=== PATIENT | female | born 1980 | race American Indian/Alaskan Native ===

== ENCOUNTER 2018-03-05 21:46 | Emergency (ER) | payer MEDICAID ==
[2018-03-05 22:35] VITALS: BP 140/96
[2018-03-05] MEDS ORDERED: TORADOL IM ONE (23:45)
[2018-03-05] MEDS ORDERED: TORADOL ONE (23:47)
[2018-03-06 00:16] LABS: HCG Qualitative,Urine Negative (Negative)
[2018-03-06 00:32] LABS: Bilirubin,Urine NEG (Negative); Blood,Urine LG (Negative); Color,Urine Yellow (Yellow); Mucus,Urine 1+ /HPF
[2018-03-06 00:34] LABS: RBC,Urine > 182.0 /HPF (0.0-6.0)
--- NOTE | 2018-03-06 01:10 | Emergency Department Report ---
ED Female HPI - General Chief complaint: Urogenital-Female Stated complaint: BLOOD IN URINE/SOB Time Seen by Provider: 03/06/18 01:09 Source: patient Mode of arrival: Ambulatory Limitations: No Limitations - History of Present Illness Initial comments: 38-year-old -[place] female comes in complaining of blood in urine pain in her left flank and reports that she was seen at the urgent care on Saturday and to [facility] was supposed to call the antibiotic and patient reports that the pharmacist said that it would be on back order until Saturday. Patient reports that she is having crampy like left flank pain that radiates to her pelvic. She denies any fever but noticed blood in the urine she's having urinary urgency. MD Complaint: dysuria, pelvic pain -: days(s) (3) Location: suprapubic, LLQ Radiation: L flank Severity: severe Severity scale (0 -10): 7 Quality: cramping, sharp Consistency: intermittent Improves with: none Worsens with: movement Are you Now?: No Last Menstrual Period: 02/13/18 EDC: 11/20/18 Associated Symptoms: hematuria - Related Data Sexually active: Yes Previous Rx's Medication Instructions Recorded Last Taken Type Ketorolac [Toradol] 10 mg PO Q6H PRN #20 tablet 03/06/18 Unknown Rx Nitrofurantoin Monohyd/M-Cryst 100 mg PO BID #20 capsule 03/06/18 Unknown Rx [Macrobid 100 mg Capsule] Allergies Allergy/AdvReac Type Severity Reaction Status Date / Time No Known Allergies Allergy Verified 11/23/15 13:00 ED Review of Systems ROS: Stated complaint: BLOOD IN URINE/SOB Other details as noted in HPI Constitutional: denies: chills, fever Gastrointestinal: abdominal pain (pelvic pain) Musculoskeletal: back pain (left flank) ED Past Medical Hx - Past Medical History Previous Medical History?: Yes Hx Psychiatric Treatment: Yes (depression) - Surgical History Past Surgical History?: Yes Additional Surgical History: c section - Social History Smoking Status: Never Smoker Substance Use Type: Alcohol - Medications Home Medications: Home Medications Medication Instructions Recorded Confirmed Last Taken Type Ketorolac [Toradol] 10 mg PO Q6H PRN #20 tablet 03/06/18 Unknown Rx Nitrofurantoin Monohyd/M-Cryst 100 mg PO BID #20 capsule 03/06/18 Unknown Rx [Macrobid 100 mg Capsule] ED Physical Exam - General Limitations: No Limitations General appearance: alert, in no apparent distress - Head Head exam: Present: atraumatic, normocephalic - Eye Eye exam: Present: normal appearance - ENT ENT exam: Present: mucous membranes moist - Neck Neck exam: Present: normal inspection - Respiratory Respiratory exam: Present: normal lung sounds bilaterally. Absent: respiratory distress - Cardiovascular Cardiovascular Exam: Present: regular rate, normal rhythm. Absent: systolic murmur, diastolic murmur, rubs, gallop - GI/Abdominal GI/Abdominal exam: Present: soft, normal bowel sounds - Extremities Exam Extremities exam: Present: normal inspection - Back Exam Back exam: Present: normal inspection - Neurological Exam Neurological exam: Present: alert, oriented X3 - Psychiatric Psychiatric exam: Present: normal affect, normal mood - Skin Skin exam: Present: warm, dry, intact, normal color. Absent: rash ED Course Vital Signs 03/05/18 03/05/18 03/05/18 21:53 22:05 22:27 Temperature 98.4 F 98.2 F 98.4 F Pulse Rate 108 H 86 108 H Respiratory 20 18 18 Rate Blood Pressure 140/96 118/68 140/96 O2 Sat by Pulse 98 100 98 Oximetry ED Medical Decision Making - Radiology Data Radiology results: report reviewed, image reviewed FINAL REPORT EXAM: CT ABDOMEN PELVIS WO CON HISTORY: left flank pain with hematuria TECHNIQUE: Helical CT scan through the abdomen and pelvis without contrast. Images are reconstructed in the sagittal and coronal planes. PRIORS: None. FINDINGS: Solid organ and bowel evaluation is limited without intravenous contrast. Bowel evaluation is limited without oral contrast. The lung bases are clear. The liver, gallbladder, pancreas, spleen and adrenal glands appear normal. There is mild left hydronephrosis, pelviectasis and ureterectasis secondary to a 3 mm stone in the proximal left ureter approximately 2-3 cm distal to the UPJ. There is mild to moderate left perinephric stranding. There are 2 stones in the left kidney each measuring approximately 1 mm. There are two 3 mm stones in the right mid kidney. There is no hydronephrosis or ureterolithiasis on the right. The bladder appears grossly normal. The uterus and ovaries appear grossly normal. The stomach appears grossly within normal limits. There are no abnormally dilated loops of bowel or acute inflammatory changes. A normal-appearing appendix is identified. The cecum is mobile being located in the left lower quadrant. The abdominal aorta has a normal diameter. The bones and subcutaneous soft tissues are unremarkable for age. IMPRESSION: 1. Mild left hydronephrosis, pelviectasis and proximal ureterectasis secondary to a 3 mm stone in the proximal left ureter approximately 2-3 cm distal to the UPJ. 2. Uifg-ie-uiqokras left perinephric stranding 3. Bilateral nephrolithiasis Transcribed By: ML Dictated By: FAHEEM GARVEY MD Electronically Authenticated By: FAHEEM GARVEY MD Signed Date/Time: 03/06/18255 DD/ 5 TD/TT: 03/06/18255 - Medical Decision Making Patient has been evaluated by this provider fast track. Urinalysis ordered which shows elevated WBCs 56, greater than [address] shows nephrolithiasis bilateral with left having 2 stones with hydronephrosis IV with normal saline 2 L ordered. Patient was given Toradol which she reports has helped a lot with her pain. Critical care attestation.: If time is entered above; I have spent that time in minutes in the direct care of this critically ill patient, excluding procedure time. ED Disposition Clinical Impression: Kidney stone on left side Hematuria Qualifiers: Hematuria type: unspecified type Qualified Code(s): R31.9 - Hematuria, unspecified UTI (urinary tract infection) Qualifiers: Urinary tract infection type: acute cystitis Hematuria presence: with hematuria Qualified Code(s): N30.01 - Acute cystitis with hematuria Disposition: TO HOME OR SELFCARE Is pt being admited?: No Does the pt Need Aspirin: No Condition: Stable Instructions: Kidney Stones (ED), Flank Pain (ED) Additional Instructions: Complete antibiotics as prescribed. Pain medication as needed. Increase her water intake by 2 L a day. Follow-up with urology I have listed their information below. Prescriptions: Ketorolac [Toradol] 10 mg PO Q6H PRN #20 tablet PRN Reason: Pain Nitrofurantoin Monohyd/M-Cryst [Macrobid 100 mg Capsule] 100 mg PO BID #20 capsule Referrals: PRIMARY CAREMD [Primary Care Provider] - 3-5 Days JAZMYNE DILLON MD [Staff Physician] - 3-5 Days Forms: Work/School Release Form(ED)
[2018-03-06] MEDS ORDERED: MACROBID PO ONE (01:23)
--- NOTE | 2018-03-06 02:57 | Cat Scan Report ---
FINAL REPORT EXAM: CT ABDOMEN PELVIS WO CON HISTORY: left flank pain with hematuria TECHNIQUE: Helical CT scan through the abdomen and pelvis without contrast. Images are reconstructed in the sagittal and coronal planes. PRIORS: None. FINDINGS: Solid organ and bowel evaluation is limited without intravenous contrast. Bowel evaluation is limited without oral contrast. The lung bases are clear. The liver, gallbladder, pancreas, spleen and adrenal glands appear normal. There is mild left hydronephrosis, pelviectasis and ureterectasis secondary to a 3 mm stone in the proximal left ureter approximately 2-3 cm distal to the UPJ. There is mild to moderate left perinephric stranding. There are 2 stones in the left kidney each measuring approximately 1 mm. There are two 3 mm stones in the right mid kidney. There is no hydronephrosis or ureterolithiasis on the right. The bladder appears grossly normal. The uterus and ovaries appear grossly normal. The stomach appears grossly within normal limits. There are no abnormally dilated loops of bowel or acute inflammatory changes. A normal-appearing appendix is identified. The cecum is mobile being located in the left lower quadrant. The abdominal aorta has a normal diameter. The bones and subcutaneous soft tissues are unremarkable for age. IMPRESSION: 1. Mild left hydronephrosis, pelviectasis and proximal ureterectasis secondary to a 3 mm stone in the proximal left ureter approximately 2-3 cm distal to the UPJ. 2. [id number] left perinephric stranding 3. Bilateral nephrolithiasis
[2018-03-06] MEDS ORDERED: NACL 0.9% 1000 ML 2,000 ML IV ONE (03:36)
== END 2018-03-06 06:07 | disposition home or self-care (01) ==
LOC: ED 21:46
DX: N30.01 Acute cystitis with hematuria (principal); N20.0 Calculus of kidney
CPT/HCPCS: 74176; 81001; 81025; 87086; 96372; 99284; J1885; J7030; 96360; 96361

== ENCOUNTER 2018-03-30 07:04 | Emergency (ER) | payer MEDICAID ==
[2018-03-30 08:05] VITALS: BP 152/93
== END 2018-03-30 09:50 ==
LOC: ED 07:04
DX: R10.9 Unspecified abdominal pain (principal); Z53.21 Procedure and treatment not carried out due to patient leaving prior to being seen by health care provider

== ENCOUNTER 2018-12-03 17:08 | Emergency (ER) | payer MEDICAID ==
--- NOTE | 2018-12-03 17:34 | Emergency Department Report ---
Blank Doc - Documentation Documentation: This is a 38-year-old female that presents with RUQ with radiation to right fl ank area with n/v. This initial assessment/diagnostic orders/clinical plan/treatment(s) is/are subject to change based on patient's health status, clinical progression and re- assessment by fellow clinical providers in the ED. Further treatment and workup at subsequent clinical providers discretion. Patient/guardians urged not to elope from the ED as their condition may be serious if not clinically assessed and managed. Initial orders include: 1- Patient sent to [facility] for further evaluation and treatment 2- labs 3- UA
[2018-12-03 17:36] VITALS: BP 109/73
[2018-12-03] MEDS ORDERED: ZOFRAN ONE (18:20)
[2018-12-03] MEDS ORDERED: ZOFRAN IV ONE ×2 (18:23→19:36)
[2018-12-03 18:39] LABS: Basophils # (Auto) 0.1 K/mm3 (0.0-0.1); Basophils % (Auto) 1.2 % (0.0-1.8); Eosinophils # (Auto) 0.1 K/mm3 (0.0-0.4); Eosinophils % (Auto) 1.4 % (0.0-4.3); Hematocrit 41.2 % (30.3-42.9); Hemoglobin 13.9 gm/dl (10.1-14.3); Lymphocytes # (Auto) 2.2 K/mm3 (1.2-5.4); Lymphocytes % (Auto) 27.1 % (13.4-35.0); Mean Corpuscular HGB Conc 34 % (30-34); Mean Corpuscular Volume 87 fl (79-97); Monocytes # (Auto) 0.5 K/mm3 (0.0-0.8); Monocytes % (Auto) 6.8 % (0.0-7.3); Platelet Count 356 K/mm3 (140-440); Red Blood Count 4.73 M/mm3 (3.65-5.03); Red Cell Distribution Width 14.3 % (13.2-15.2)
[2018-12-03 19:04] LABS: Alanine Aminotransferase 24 units/L (7-56); Albumin 4.5 g/dL (3.9-5); BUN/Creatinine Ratio 23; Blood Urea Nitrogen 21 mg/dL (7-17); Calcium 9.2 mg/dL (8.4-10.2); Hemolysis Index 4
[2018-12-03 19:06] LABS: Bilirubin,Direct < 0.2 mg/dL (0-0.2)
[2018-12-03 19:24] LABS: Bilirubin,Urine NEG (Negative); Blood,Urine MOD (Negative); Color,Urine Yellow (Yellow); Mucus,Urine 1+ /HPF; Urobilinogen,Urine < 2.0 mg/dL (<2.0)
[2018-12-03] MEDS ORDERED: NACL 0.9% 1000 ML 1,000 ML IV ONE (19:36)
[2018-12-03] MEDS ORDERED: TORADOL IV ONE (19:36)
--- NOTE | 2018-12-03 21:40 | Cat Scan Report ---
PROCEDURE: CT ABDOMEN PELVIS WO CON TECHNIQUE: Computerized axial tomography of the abdomen and pelvis was performed without intravenous contrast. This study is performed without intravascular contrast material and its sensitivity for ab dominal and pelvic pathology, including neoplasms, inflammation, abscess, free fluid, thrombosis, art erial dissection and infarction, is reduced compared with a contrast enhanced study. CT DOSE LENGTH PRODUCT: 1410.3 mGycm HISTORY: abdominal pain hx renal stones COMPARISONS: March 06, 2018 . FINDINGS: Liver, spleen, pancreas and adrenal glands are within normal limits. A 3 mm obstructive calculus is n oted in the proximal right ureter at the level of L3 associated with mild degree right hydronephrosis . There are additional 2 mm nonobstructive calculi in bilateral kidneys. Aorta is of normal caliber. There is no free fluid or free air. Gallbladder is unremarkable. Small bowel loops are within normal limits. Appendix is normal. Cecum is located in the left lower quadrant. There is a small hiatal kobi ia. A small fat-containing uncomplicated umbilical hernia is noted. Vertebral height is normal. IMPRESSION: 3 mm obstructive calculus proximal right ureter with mild right-sided hydronephrosis Nonobstructive 2 mm of bilateral renal calculi Small hiatal hernia This document is electronically signed by Rk Paris MD., Dec 03 2018 09:38:42 PM ET
--- NOTE | 2018-12-03 21:46 | Emergency Department Report ---
ED Abdominal Pain HPI - General Chief Complaint: Abdominal Pain Stated Complaint: R SIDE STOMACH PAIN/SOB/NAUSEA Time Seen by Provider: 12/03/18 17:33 Source: patient Mode of arrival: Ambulatory Limitations: No Limitations - History of Present Illness Initial Comments: This is a 38-year-old female that presents with RUQ with radiation to right flank area with n/v. Complaint: abdominal pain Onset/Timin -: week(s) Location: RUQ Radiation: R flank Migration to: no migration Severity scale (0 -10): 4 Quality: sharp Consistency: constant Improves With: nothing Worsens With: eating Associated Symptoms: nausea, vomiting - Related Data LMP Date: 11/19/18 Previous Rx's Medication Instructions Recorded Last Taken Type Ketorolac [Toradol] 10 mg PO Q6H PRN #20 tablet 03/06/18 Unknown Rx Nitrofurantoin Monohyd/M-Cryst 100 mg PO BID #20 capsule 03/06/18 Unknown Rx [Macrobid 100 mg Capsule] Tamsulosin [Flomax] 0.4 mg PO QDAY #15 cap 12/03/18 Unknown Rx traMADol [Ultram] 50 mg PO Q6HR PRN #12 tablet 12/03/18 Unknown Rx Allergies Allergy/AdvReac Type Severity Reaction Status Date / Time No Known Allergies Allergy Verified 12/03/18 17:15 ED Review of Systems ROS: Stated complaint: R SIDE STOMACH PAIN/SOB/NAUSEA Other details as noted in HPI Constitutional: fever. denies: chills Eyes: denies: eye pain, eye discharge, vision change ENT: denies: ear pain, throat pain Respiratory: denies: cough, shortness of breath, wheezing Cardiovascular: denies: chest pain, palpitations Endocrine: no symptoms reported Gastrointestinal: abdominal pain, nausea, vomiting. denies: diarrhea, constipation Genitourinary: denies: urgency, dysuria, frequency, hematuria, discharge Musculoskeletal: as per HPI Skin: denies: rash, lesions Neurological: denies: headache, weakness, paresthesias Psychiatric: denies: anxiety, depression Hematological/Lymphatic: denies: easy bleeding, easy bruising ED Past Medical Hx - Past Medical History Previous Medical History?: No Hx Psychiatric Treatment: Yes (depression) - Surgical History Additional Surgical History: c section - Social History Smoking Status: Unknown if ever smoked - Medications Home Medications: Home Medications Medication Instructions Recorded Confirmed Last Taken Type Ketorolac [Toradol] 10 mg PO Q6H PRN #20 tablet 03/06/18 Unknown Rx Nitrofurantoin Monohyd/M-Cryst 100 mg PO BID #20 capsule 03/06/18 Unknown Rx [Macrobid 100 mg Capsule] Tamsulosin [Flomax] 0.4 mg PO QDAY #15 cap 12/03/18 Unknown Rx traMADol [Ultram] 50 mg PO Q6HR PRN #12 tablet 12/03/18 Unknown Rx ED Physical Exam - General Limitations: No Limitations General appearance: alert, in no apparent distress - Head Head exam: Present: atraumatic, normocephalic - Eye Eye exam: Present: normal appearance - ENT ENT exam: Present: mucous membranes moist - Neck Neck exam: Present: normal inspection - Respiratory Respiratory exam: Present: normal lung sounds bilaterally. Absent: respiratory distress - Cardiovascular Cardiovascular Exam: Present: regular rate, normal rhythm. Absent: systolic murmur, diastolic murmur, rubs, gallop - GI/Abdominal GI/Abdominal exam: Present: soft, tenderness (RUQ, Right Flank ), normal bowel sounds. Absent: distended, guarding, rebound, rigid, bruit, hernia - Rectal Rectal exam: Present: deferred - Extremities Exam Extremities exam: Present: normal inspection, full ROM, normal capillary refill. Absent: tenderness, pedal edema, joint swelling - Back Exam Back exam: Present: normal inspection, full ROM. Absent: tenderness, CVA tenderness (R), CVA tenderness (L), muscle spasm, rash noted - Neurological Exam Neurological exam: Present: alert, oriented X3, CN II-XII intact, normal gait, reflexes normal - Psychiatric Psychiatric exam: Present: normal affect, normal mood - Skin Skin exam: Present: warm, dry, intact, normal color. Absent: rash ED Course Vital Signs 12/03/18 12/03/18 12/03/18 17:34 18:24 19:43 Temperature 98.4 F Pulse Rate 97 H Respiratory 18 19 20 Rate Blood Pressure 109/73 O2 Sat by Pulse 99 Oximetry ED Medical Decision Making - Lab Data Result diagrams: 12/03/18 18:08 12/03/18 18:08 Laboratory Results - last 72 hr 12/03/18 12/03/18 12/03/18 18:08 18:08 18:08 WBC 8.0 RBC 4.73 Hgb 13.9 Hct 41.2 MCV 87 MCH 29 MCHC 34 RDW 14.3 Plt Count 356 Lymph % (Auto) 27.1 Evans % (Auto) 6.8 Eos % (Auto) 1.4 Baso % (Auto) 1.2 Lymph # 2.2 Evans # 0.5 Eos # 0.1 Baso # 0.1 Seg Neutrophils % 63.5 Seg Neutrophils # 5.1 Sodium 143 Potassium 3.9 Chloride 105.4 Carbon Dioxide 24 Anion Gap 18 BUN 21 H Creatinine 0.9 Estimated GFR > 60 BUN/Creatinine Ratio 23 Glucose 113 H Calcium 9.2 Total Bilirubin 0.30 Direct Bilirubin < 0.2 Indirect Bilirubin 0.1 AST 15 ALT 24 Alkaline Phosphatase 131 H Total Protein 7.4 Albumin 4.5 Albumin/Globulin Ratio 1.6 Lipase 45 HCG, Qual Negative Urine Color Urine Turbidity Urine pH Ur Specific Draper Urine Protein Urine Glucose (UA) Urine Ketones Urine Blood Urine Nitrite Urine Bilirubin Urine Urobilinogen Ur Leukocyte Esterase Urine WBC (Auto) Urine RBC (Auto) U Epithel Cells (Auto) Urine Mucus 12/03/18 18:15 WBC RBC Hgb Hct MCV MCH MCHC RDW Plt Count Lymph % (Auto) Evans % (Auto) Eos % (Auto) Baso % (Auto) Lymph # Evans # Eos # Baso # Seg Neutrophils % Seg Neutrophils # Sodium Potassium Chloride Carbon Dioxide Anion Gap BUN Creatinine Estimated GFR BUN/Creatinine Ratio Glucose Calcium Total Bilirubin Direct Bilirubin Indirect Bilirubin AST ALT Alkaline Phosphatase Total Protein Albumin Albumin/Globulin Ratio Lipase HCG, Qual Urine Color Yellow Urine Turbidity Slightly-cloudy Urine pH 7.0 Ur Specific Draper 1.025 Urine Protein 30 mg/dl Urine Glucose (UA) Neg Urine Ketones Neg Urine Blood Mod Urine Nitrite Neg Urine Bilirubin Neg Urine Urobilinogen < 2.0 Ur Leukocyte Esterase Tr Urine WBC (Auto) 3.0 Urine RBC (Auto) 68.0 U Epithel Cells (Auto) 25.0 H Urine Mucus 1+ - Radiology Data Radiology results: report reviewed, image reviewed [facility] [address] [place] [address] Cat Scan Report Signed Patient: CARINE MOROCHO MR#: [id number] : 1980 Acct:[id number] Age/Sex: 38 / F ADM Date: 12/03/18 Loc: ED Attending Dr: Ordering Physician: JONELLE JAVIER NP Date of Service: 12/03/18 Procedure(s): CT abdomen pelvis wo con Accession Number(s): [id number] cc: JONELLE JAVIER NP PROCEDURE: CT ABDOMEN PELVIS WO CON TECHNIQUE: Computerized axial tomography of the abdomen and pelvis was performed without intravenous contrast. This study is performed without intravascular contrast material and its sensitivity for abdominal and pelvic pathology, including neoplasms, inflammation, abscess, free fluid, thrombosis, arterial dissection and infarction, is reduced compared with a contrast enhanced study. CT DOSE LENGTH PRODUCT: 1410.3 mGycm HISTORY: abdominal pain hx renal stones COMPARISONS: March 06, 2018 . FINDINGS: Liver, spleen, pancreas and adrenal glands are within normal limits. A 3 mm obstructive calculus is noted in the proximal right ureter at the level of L3 associated with mild degree right hydronephrosis. There are additional 2 mm nonobstructive calculi in bilateral kidneys. Aorta is of normal caliber. There is no free fluid or free air. Gallbladder is unremarkable. Small bowel loops are within normal limits. Appendix is normal. Cecum is located in the left lower quadrant. There is a small hiatal hernia. A small fat-containing uncomplicated umbilical hernia is noted. Vertebral height is normal. IMPRESSION: 3 mm obstructive calculus proximal right ureter with mild right-sided hydronephrosis Nonobstructive 2 mm of bilateral renal calculi Small hiatal hernia This document is electronically signed by Gabriella Paris MD., Dec 03 2018 09:38:42 PM ET Transcribed By: [facility] [place] Dictated By: GABRIELLA PARIS Electronically Authenticated By: GABRIELLA PARIS Signed Date/Time: 12/03/182139 DD/ 16 TD/TT: 12/03/182025 - Medical Decision Making ct abd pelvis, noted for renal stones 2mm, 3mm obstructive urethral stone right, mild hydro, smyptoms are relieved at this time, pt is tolerating po intake without n/v , plan: flomax, ultram, follow up with urology in 2-3 days hydrate , return to ed if symptoms worsen. pt verbalized agreement and undestanding of discharge plan. Critical care attestation.: If time is entered above; I have spent that time in minutes in the direct care of this critically ill patient, excluding procedure time. ED Disposition Clinical Impression: Urethral stone, Renal stone Disposition: DC- TO HOME OR SELFCARE Is pt being admited?: No Does the pt Need Aspirin: No Condition: Stable Instructions: Abdominal Pain (ED), Kidney Stones (ED) Prescriptions: Tamsulosin [Flomax] 0.4 mg PO QDAY #15 cap traMADol [Ultram] 50 mg PO Q6HR PRN #12 tablet PRN Reason: Pain Referrals: ADELA DACOSTA MD [Staff Physician] - 3-5 Days Forms: Work/School Release Form(ED) Time of Disposition: 22:00
== END 2018-12-03 22:05 | disposition home or self-care (01) ==
LOC: ED 17:08
DX: N21.1 Calculus in urethra (principal); N20.0 Calculus of kidney
CPT/HCPCS: 36415; 74176; 80048; 80076; 81001; 83690; 84703; 85025; 96361; 96374; 96375; 96376; 99284; J1885; J2405; J7030

== ENCOUNTER 2019-09-14 14:30 | Emergency (ER) | payer MEDICAID ==
[2019-09-14 15:51] VITALS: BP 137/83
[2019-09-14] MEDS ORDERED: ONDANSETRON 4 MG/2 ML INJ IV ONE (16:17)
[2019-09-14] MEDS ORDERED: SODIUM CHLORIDE 0.9% 1000 ML 1,000 ML IV ONE (16:17)
[2019-09-14] MEDS ORDERED: MECLIZINE 25 MG TAB PO ONE (16:42)
--- NOTE | 2019-09-14 16:44 | Emergency Department Report ---
ED Dizziness HPI - General Chief Complaint: Dizziness Stated Complaint: DIZZY, Time Seen by Provider: 09/14/19 15:55 Source: patient Mode of arrival: Ambulatory Limitations: No Limitations - History of Present Illness Initial Comments: This is a 39-year-old female nontoxic, well nourished in appearance, no acute signs of distress presents to the ED with c/o of dizziness and nausea intermittent x3 months. Patient denies any headache or head trauma. Patient stated the dizziness is worsened with position change. Patient denies any numbness, tingling, headache, stiff neck, chest pain, shortness of breathe, numbness or tingling. Denies any visual changes or blurry vision. Denies any drug allergies. MD Complaint: dizziness, lightheadedness -: month(s) (3) Timing: gradual onset Description: sense of movement, lightheadedness History of Same: Yes History of Trauma: No Severity: mild Improves With: nothing Worsens With: nothing Associated Symptoms: denies other symptoms. denies: ataxia, chest pain, confusion, cough, diaphoresis, fever/chills, loss of appetite, malaise, rash, seizure, shortness of breath, syncope, weakness - Related Data Previous Rx's Medication Instructions Recorded Last Taken Type Ketorolac [Toradol] 10 mg PO Q6H PRN #20 tablet 03/06/18 Unknown Rx Nitrofurantoin Monohyd/M-Cryst 100 mg PO BID #20 capsule 03/06/18 Unknown Rx [Macrobid 100 mg Capsule] Tamsulosin [Flomax] 0.4 mg PO QDAY #15 cap 12/03/18 Unknown Rx traMADoL [Ultram] 50 mg PO Q6HR PRN #12 tablet 12/03/18 Unknown Rx Meclizine [Antivert] 12.5 mg PO BID PRN #12 tablet 09/14/19 Unknown Rx Ondansetron [Zofran Odt] 4 mg PO Q8HR PRN #12 tab.rapdis 09/14/19 Unknown Rx Allergies Allergy/AdvReac Type Severity Reaction Status Date / Time No Known Allergies Allergy Verified 12/03/18 17:15 ED Review of Systems ROS: Stated complaint: DIZZY, Other details as noted in HPI Constitutional: denies: chills, fever Eyes: denies: eye pain, eye discharge, vision change ENT: denies: ear pain, throat pain Respiratory: denies: cough, shortness of breath, wheezing Cardiovascular: denies: chest pain, palpitations Endocrine: no symptoms reported Gastrointestinal: nausea. denies: abdominal pain, vomiting, diarrhea, constipation, hematemesis, melena, hematochezia Genitourinary: denies: urgency, dysuria, discharge Musculoskeletal: denies: back pain, joint swelling, arthralgia Skin: denies: rash, lesions Neurological: vertigo. denies: headache, weakness, numbness, paresthesias, confusion, abnormal gait Psychiatric: denies: anxiety, depression Hematological/Lymphatic: denies: easy bleeding, easy bruising ED Past Medical Hx - Past Medical History Hx Hypertension: Yes Hx Psychiatric Treatment: Yes (depression) - Surgical History Past Surgical History?: No Additional Surgical History: c section - Social History Smoking Status: Unknown if ever smoked - Medications Home Medications: Home Medications Medication Instructions Recorded Confirmed Last Taken Type Ketorolac [Toradol] 10 mg PO Q6H PRN #20 tablet 03/06/18 Unknown Rx Nitrofurantoin Monohyd/M-Cryst 100 mg PO BID #20 capsule 03/06/18 Unknown Rx [Macrobid 100 mg Capsule] Tamsulosin [Flomax] 0.4 mg PO QDAY #15 cap 12/03/18 Unknown Rx traMADoL [Ultram] 50 mg PO Q6HR PRN #12 tablet 12/03/18 Unknown Rx Meclizine [Antivert] 12.5 mg PO BID PRN #12 tablet 09/14/19 Unknown Rx Ondansetron [Zofran Odt] 4 mg PO Q8HR PRN #12 tab.rapdis 09/14/19 Unknown Rx ED Physical Exam - General Limitations: No Limitations General appearance: alert, in no apparent distress - Head Head exam: Present: atraumatic, normocephalic - Eye Eye exam: Present: normal appearance, PERRL, EOMI - Neck Neck exam: Present: normal inspection, full ROM. Absent: tenderness, meningismus, lymphadenopathy - Respiratory Respiratory exam: Present: normal lung sounds bilaterally. Absent: respiratory distress, wheezes, rales, rhonchi, stridor, chest wall tenderness, accessory muscle use, decreased breath sounds, prolonged expiratory - Cardiovascular Cardiovascular Exam: Present: regular rate, normal rhythm, normal heart sounds. Absent: irregular rhythm, systolic murmur, diastolic murmur, rubs, gallop - GI/Abdominal GI/Abdominal exam: Present: soft, normal bowel sounds. Absent: distended, tenderness, guarding, rebound, rigid, diminished bowel sounds - Extremities Exam Extremities exam: Present: normal inspection, full ROM, normal capillary refill. Absent: tenderness - Back Exam Back exam: Present: normal inspection, full ROM. Absent: tenderness, CVA tenderness (R), CVA tenderness (L), muscle spasm, paraspinal tenderness, vertebral tenderness, rash noted - Neurological Exam Neurological exam: Present: alert, oriented X3, normal gait - Expanded Neurological Exam Expanded Patient oriented to: Present: person, place, time Cranial nerves: EOM's Intact: Normal, Facial Sensation: Normal Cerebellar function: Finger to Nose: Normal Upper motor neuron: Pronator Drift: Normal, Sensory Extinction: Normal Motor strength exam: RUE: 5, LUE: 5, RLE: 5, LLE: 5 Best Eye Response ([place]): (4) open spontaneously Best Motor Response ([place]): (6) obeys commands Best Verbal Response ([place]): (5) oriented [place] Total: 15 - Psychiatric Psychiatric exam: Present: normal affect, normal mood - Skin Skin exam: Present: warm, dry, intact, normal color. Absent: rash ED Course Vital Signs 09/14/19 15:48 Temperature 98.4 F Pulse Rate 103 H Respiratory 18 Rate Blood Pressure 137/83 [Right] O2 Sat by Pulse 99 Oximetry - Reevaluation(s) Reevaluation #1: 09/14/19 16:46 Patient is speaking in full sentences with no signs of distress noted. ED Medical Decision Making - Lab Data Result diagrams: 09/14/19 16:15 09/14/19 16:15 - Medical Decision Making This is a 39-year-old female that presents with dizziness. Patient is stable and was examined by me. Labs are unremarkable. Urine obtained. Orthostatic vital signs obtained and within normal limits. Patient received 1 L of normal saline and antivert which she stated his symptoms of dizziness has subsided and resolved. Patient is neurologically stable. Patient was instructed to Follow- up with a primary care doctor in 3-5 days or if symptoms worsen and continue return to emergency room as soon as possible. At time of discharge, the patient does not seem toxic or ill in appearance. No acute signs of distress noted. Patient agrees to discharge treatment plan of care. No further questions noted by the patient. Critical care attestation.: If time is entered above; I have spent that time in minutes in the direct care of this critically ill patient, excluding procedure time. ED Disposition Clinical Impression: Vertigo Disposition: DC-01 TO HOME OR SELFCARE Is pt being admited?: No Does the pt Need Aspirin: No Condition: Stable Instructions: Vertigo (ED) Additional Instructions: Follow-up with a primary care doctor in 3-5 days or if symptoms worsen and continue return to emergency room as soon as possible. Prescriptions: Meclizine [Antivert] 12.5 mg PO BID PRN #12 tablet PRN Reason: Vertigo Ondansetron [Zofran Odt] 4 mg PO Q8HR PRN #12 tab.rapdis PRN Reason: nausea Referrals: SARTHAK CASTROMORSE MD [place] [Referring] - 3-5 Days TYRON HENDERSON MD [Staff Physician] - 3-5 Days [facility] [Outside] - 3-5 Days Forms: Work/School Release Form(ED)
[2019-09-14 16:50] LABS: Basophils # (Auto) 0.1 K/mm3 (0.0-0.1); Basophils % (Auto) 1.2 % (0.0-1.8); Eosinophils # (Auto) 0.1 K/mm3 (0.0-0.4); Eosinophils % (Auto) 1.5 % (0.0-4.3); Hematocrit 43.8 % (30.3-42.9); Hemoglobin 14.5 gm/dl (10.1-14.3); Lymphocytes # (Auto) 1.9 K/mm3 (1.2-5.4); Mean Corpuscular HGB Conc 33 % (30-34); Mean Corpuscular Volume 87 fl (79-97); Monocytes # (Auto) 0.4 K/mm3 (0.0-0.8); Monocytes % (Auto) 5.3 % (0.0-7.3); Platelet Count 391 K/mm3 (140-440); Red Blood Count 5.05 M/mm3 (3.65-5.03)
[2019-09-14 17:02] LABS: BUN/Creatinine Ratio 14; Blood Urea Nitrogen 10 mg/dL (7-17); Calcium 9.4 mg/dL (8.4-10.2); Hemolysis Index 9
== END 2019-09-14 17:51 | disposition home or self-care (01) ==
LOC: ED 14:30
DX: R42 Dizziness and giddiness (principal); F31.9 Bipolar disorder, unspecified; Z98.890 Other specified postprocedural states; Z79.899 Other long term (current) drug therapy
CPT/HCPCS: 36415; 80048; 84703; 85025; 96360; 99283; J2405; J7030